=== PATIENT | female | born 1990 | race Caucasian/White ===

== ENCOUNTER → 2018-11-14 | Outpatient (REF) | LOC: M LAB LCGH 11:08 | PROVIDERS: ATTEND Nurse Practitioner Adult Health | DX: Z12.4 Encounter for screening for malignant neoplasm of cervix (principal) ==

== ENCOUNTER → 2021-12-02 | Outpatient (CLI) | payer OTHER | LOC: M WHC 13:02 | PROVIDERS: ATTEND Obstetrics & Gynecology | DX: O13.3 Gestational [pregnancy-induced] hypertension without significant proteinuria, third trimester (principal); Z3A.34 34 weeks gestation of pregnancy ==

== ENCOUNTER → 2021-12-09 | Outpatient (CLI) | payer OTHER ==
[~2021-12-09] MED LIST: LABE20TAB GT; OMEP10CASR PO; REGL10TA6 PO; [UNRECOGNIZED DRUG - CODE] PO
== END ==
LOC: M WHC 09:53
PROVIDERS: ATTEND Obstetrics & Gynecology
DX: O13.9 Gestational [pregnancy-induced] hypertension without significant proteinuria, unspecified trimester (principal); Z3A.35 35 weeks gestation of pregnancy

== ENCOUNTER → 2021-12-12 | Outpatient (CLI) | payer OTHER, MEDICAID | LOC: M LABSMTC 10:48 | PROVIDERS: ATTEND Anesthesiology | DX: Z01.818 Encounter for other preprocedural examination (principal); Z11.52 Encounter for screening for COVID-19 ==

== ENCOUNTER → 2021-12-14 | Outpatient (REF) | payer OTHER, MEDICAID ==
[~2021-12-14] MED LIST changes: +ACET325C5 PO; +B-2100TA; +GLYB5TAB6 PO; +LABE100T4 PO; +MAGN400T35
== END ==
LOC: M SFHCWAGY 17:03
PROVIDERS: ATTEND Obstetrics & Gynecology
DX: Z36.85 Encounter for antenatal screening for Streptococcus B (principal); O34.211 Maternal care for low transverse scar from previous cesarean delivery

== ENCOUNTER 2021-12-15 12:52 | Inpatient (IN) | payer OTHER ==
[~2021-12-15] VITALS: Ht 152.4 cm; Wt 110.1 kg
[2021-12-15] VITALS (10 sets, daily range): BP systolic 83–175; BP diastolic 53–101
[~2021-12-15 12:52] MED LIST changes: -ACET325C5 PO; -B-2100TA; -GLYB5TAB6 PO; -LABE100T4 PO; -MAGN400T35
[2021-12-15] MEDS ORDERED: LR 1,000 ML IV SCH (13:40)
[2021-12-15] MEDS ORDERED: B-2100TA (13:45)
[2021-12-15] MEDS ORDERED: HOME MED LIST COMPLETE! XX SCH (13:45)
[2021-12-15] MEDS ORDERED: DEXTROSE 50% 50 ML SYRINGE IV PRN (13:45)
[2021-12-15] MEDS ORDERED: ACET325C5 PO (13:45)
[2021-12-15] MEDS ORDERED: LABE100T4 PO (13:45)
[2021-12-15] MEDS ORDERED: GLUCOSE 4GM CHEW TABLET PO PRN (13:45)
[2021-12-15] MEDS ORDERED: GLUCAGON INJ 1MG VIAL SC PRN (13:45)
[2021-12-15] MEDS ORDERED: MAGN400T35 (13:45)
[2021-12-15] MEDS ORDERED: GLYB5TAB6 PO (13:45)
[2021-12-15 14:12] LABS: BASO % 0.1 % (0.0-1.0); EOS # 0.1 10^3/uL (0.0-0.5); EOS % 0.8 % (0.0-3.0); HEMATOCRIT 31.9 % (36.0-47.0); HEMOGLOBIN 10.4 g/dl (12.0-15.5); LYMPH # 1.3 10^3/uL (1.5-5.0); MEAN CORPUSCULAR HEMOGLOBIN 27.4 pg (27.0-33.0); MEAN CORPUSCULAR HGB CONC 32.6 g/dl (32.0-36.5); MEAN CORPUSCULAR VOLUME 83.9 fl (80.0-96.0); MONO # 0.4 10^3/uL (0.0-0.8); MONO % 4.9 % (2.0-8.0); NEUTROPHILS # 6.5 10^3/uL (1.5-8.5); NEUTROPHILS % 77.1 % (36.0-66.0); PLATELET COUNT, AUTOMATED 204 10^3/uL (150-450); WHITE BLOOD COUNT 8.4 10^3/uL (4.0-10.0)
[2021-12-15] MEDS: LABETALOL 200 MG TAB PO SCH ×2 (14:38→21:00)
[2021-12-15] MEDS: BETAMETHASONE SOLUSPAN 6MG/ML 5ML VIAL (J0702 PER 3MG) IM SCH (14:39)
[2021-12-15 14:44] LABS: ALBUMIN 2.4 GM/DL (3.2-5.2); ALT/SGPT 10 U/L (12-78); BILIRUBIN,TOTAL 0.3 MG/DL (0.2-1.0); BLOOD UREA NITROGEN 6 MG/DL (7-18); CALCIUM LEVEL 8.5 MG/DL (8.5-10.1); CARBON DIOXIDE LEVEL 23 MEQ/L (21-32); CHLORIDE LEVEL 108 MEQ/L (98-107); CREATININE FOR GFR 0.56 MG/DL (0.55-1.30); GLOMERULAR FILTRATION RATE > 60.0 (>60); GLUCOSE, FASTING 79 MG/DL (70-100); POTASSIUM SERUM 3.9 MEQ/L (3.5-5.1); SODIUM LEVEL 138 MEQ/L (136-145); TOTAL PROTEIN 5.6 GM/DL (6.4-8.2)
[2021-12-15] MEDS: INSULIN LISPRO (NovoLOG) PER UNIT SC SCH ×2 (14:47→18:00)
[2021-12-15] MEDS ORDERED: CALCIUM CARBONATE 500 MG CHEW U/D PO PRN (17:30)
[2021-12-15] MEDS: ACETAMINOPHEN 500 MG TAB PO PRN (18:42)
[2021-12-15] MEDS: OMEPRAZOLE 20MG CAP PO SCH (21:14)
[2021-12-16] MEDS: INSULIN LISPRO (NovoLOG) PER UNIT SC SCH ×4 (00:45→18:13)
[2021-12-16 06:30] VITALS: BP 117/74
[2021-12-16 07:10] VITALS: BP 133/74
[2021-12-16] MEDS: ACETAMINOPHEN 500 MG TAB PO PRN (07:19)
[2021-12-16 09:16] VITALS: BP 157/84
[2021-12-16] MEDS: OMEPRAZOLE 20MG CAP PO SCH ×2 (09:19→21:26)
[2021-12-16] MEDS: LABETALOL 200 MG TAB PO SCH ×2 (09:19→21:27)
[2021-12-16 12:04] VITALS: BP 129/66
[2021-12-16] MEDS ORDERED: SLF 3 ML SYR IV SCH (14:00)
[2021-12-16] MEDS: BETAMETHASONE SOLUSPAN 6MG/ML 5ML VIAL (J0702 PER 3MG) IM SCH (14:10)
[2021-12-16 16:22] VITALS: BP 136/74
[2021-12-16 21:07] VITALS: BP 112/70
[2021-12-17] VITALS (10 sets, daily range): BP systolic 112–153; BP diastolic 56–90
[2021-12-17] MEDS: INSULIN LISPRO (NovoLOG) PER UNIT SC SCH ×2 (00:27→06:21)
[2021-12-17] MEDS ORDERED: ceFAZolin SOD 1 GM in D5W MINI-BAG PLUS 50 ML IV ONE (06:00)
[2021-12-17] MEDS ORDERED: LR 1,000 ML IV ONE (06:00)
[2021-12-17] MEDS ORDERED: BICITRA 30ML SOLN UDC PO ONE (06:00)
[2021-12-17] MEDS ORDERED: ceFAZolin SOD 2 GM in IV 1 EA IV ONE (06:00)
[2021-12-17] MEDS ORDERED: LR 1,000 ML IV SCH ×2 (06:45→09:30)
[2021-12-17 07:12] LABS: HEMOGLOBIN 9.3 g/dl (12.0-15.5); MEAN CORPUSCULAR HEMOGLOBIN 27.4 pg (27.0-33.0); MEAN CORPUSCULAR HGB CONC 32.1 g/dl (32.0-36.5); MEAN CORPUSCULAR VOLUME 85.5 fl (80.0-96.0); PLATELET COUNT, AUTOMATED 214 10^3/uL (150-450); RED BLOOD COUNT 3.39 10^6/uL (4.00-5.40); WHITE BLOOD COUNT 11.2 10^3/uL (4.0-10.0)
[2021-12-17] MEDS ORDERED: MORPHINE PRES-FREE INJ 10 MG/10 ML VIAL As Ordered ONE (07:15)
[2021-12-17] MEDS: LABETALOL 200 MG TAB PO SCH ×3 (09:00→21:17)
[2021-12-17] MEDS ORDERED: KETOROLAC 60MG 2ML VIAL As Ordered ONE (09:23)
[2021-12-17] MEDS ORDERED: OXYTOCIN 30 UNITS IN 0.9% NaCl 500ML IV BAG (J2590) As Ordered ONE (09:23)
[2021-12-17] MEDS ORDERED: MOM 30ML SUSPENSION UDC PO PRN (09:30)
[2021-12-17] MEDS ORDERED: RHOGAM 300 MCG (1500 IU) INJ (J2790) IM SCH (09:30)
[2021-12-17] MEDS ORDERED: ONDANSETRON 4MG/2ML VIAL IV PRN ×2 (09:30→10:40)
[2021-12-17] MEDS ORDERED: MEASLES,MUMPS,RUBELLA VACCINE INJ (MMR-II) (90707) SC SCH (09:30)
[2021-12-17] MEDS ORDERED: PERCOCET PO (09:44)
[2021-12-17] MEDS ORDERED: COLA100C5 PO (09:44)
[2021-12-17] MEDS ORDERED: IBUP80TA PO (09:44)
[2021-12-17] MEDS ORDERED: OXYTOCIN DRIP 30 UNITS in IV 1 EA IV ONE (10:20)
[2021-12-17] MEDS ORDERED: oxyCODONE 5MG TAB PO PRN (10:40)
[2021-12-17] MEDS ORDERED: fentaNYL 100 MCG/2 ML INJECTION IV PRN (10:40)
[2021-12-17] MEDS: PERCOCET 5MG/325MG TAB PO PRN (12:34)
[2021-12-17] MEDS: KETOROLAC 30 MG/ML 1ML VIAL IV SCH ×2 (15:06→21:20)
[2021-12-17] MEDS: DOCUSATE SODIUM 100MG CAPSULE PO SCH (21:15)
[2021-12-17] MEDS: SIMETHICONE 80MG CHEW TAB PO PRN (21:22)
[2021-12-18] MEDS: PERCOCET 5MG/325MG TAB PO PRN ×2 (01:57→15:55)
[2021-12-18 02:00] VITALS: BP 144/74
[2021-12-18] MEDS: KETOROLAC 30 MG/ML 1ML VIAL IV SCH (03:56)
[2021-12-18 05:35] VITALS: BP 136/77
[2021-12-18 06:32] LABS: HEMOGLOBIN 8.4 g/dl (12.0-15.5); MEAN CORPUSCULAR HEMOGLOBIN 27.4 pg (27.0-33.0); MEAN CORPUSCULAR HGB CONC 31.1 g/dl (32.0-36.5); MEAN CORPUSCULAR VOLUME 87.9 fl (80.0-96.0); PLATELET COUNT, AUTOMATED 203 10^3/uL (150-450); RED BLOOD COUNT 3.07 10^6/uL (4.00-5.40)
[2021-12-18] MEDS ORDERED: PILL CUTTER 1 EACH XX PRN (07:50)
[2021-12-18] MEDS ORDERED: ENOXAPARIN 60MG/0.6ML SYRINGE (J1650 PER 10MG) SC SCH (09:00)
[2021-12-18] MEDS ORDERED: LABETALOL 200 MG TAB PO ONE (09:00)
[2021-12-18] MEDS: PRENATAL VITAMINS CHEWABLE TABLET PO SCH ×2 (09:00→09:47)
[2021-12-18] MEDS: DOCUSATE SODIUM 100MG CAPSULE PO SCH ×2 (09:45→20:17)
[2021-12-18] MEDS: IBUPROFEN 800 MG TAB PO SCH ×2 (09:46→20:20)
[2021-12-18] MEDS: ENOXAPARIN 40MG/0.4ML SYRINGE (J1650 PER 10MG) SC SCH (09:48)
[2021-12-18 09:56] VITALS: BP 139/82
[2021-12-18] MEDS: SIMETHICONE 80MG CHEW TAB PO PRN (15:54)
[2021-12-18 18:00] VITALS: BP 127/69
[2021-12-18] MEDS: LABETALOL 200 MG TAB PO SCH (20:19)
[2021-12-18 22:00] VITALS: BP 151/73
[2021-12-19] MEDS: PERCOCET 5MG/325MG TAB PO PRN ×2 (01:31→20:01)
[2021-12-19] MEDS: IBUPROFEN 800 MG TAB PO SCH ×3 (03:01→20:00)
[2021-12-19 06:00] VITALS: BP 146/84
[2021-12-19] MEDS: DOCUSATE SODIUM 100MG CAPSULE PO SCH ×2 (10:11→20:00)
[2021-12-19] MEDS: PRENATAL VITAMINS CHEWABLE TABLET PO SCH (10:11)
[2021-12-19] MEDS: ENOXAPARIN 40MG/0.4ML SYRINGE (J1650 PER 10MG) SC SCH (10:11)
[2021-12-19] MEDS: LABETALOL 200 MG TAB PO SCH ×2 (10:14→20:00)
[2021-12-19 14:00] VITALS: BP 131/75
[2021-12-19 18:00] VITALS: BP 136/87
[2021-12-19 20:00] VITALS: BP 128/60
[2021-12-19 22:00] VITALS: BP 154/84
[2021-12-20 02:00] VITALS: BP 143/78
[2021-12-20] MEDS: IBUPROFEN 800 MG TAB PO SCH ×2 (03:29→11:35)
[2021-12-20 06:00] VITALS: BP_SYST 0; BP_SYST 168; BP_DIAS 93
[2021-12-20] MEDS: PERCOCET 5MG/325MG TAB PO PRN ×2 (06:07→12:43)
[2021-12-20 06:15] VITALS: BP 166/86
[2021-12-20] MEDS: LABETALOL 200 MG TAB PO SCH (06:29)
[2021-12-20 08:30] VITALS: BP 140/83
[2021-12-20] MEDS: PRENATAL VITAMINS CHEWABLE TABLET PO SCH (08:55)
[2021-12-20] MEDS: DOCUSATE SODIUM 100MG CAPSULE PO SCH (08:55)
[2021-12-20] MEDS: ENOXAPARIN 40MG/0.4ML SYRINGE (J1650 PER 10MG) SC SCH (08:56)
[2021-12-20] MEDS: SIMETHICONE 80MG CHEW TAB PO PRN ×2 (09:02→12:44)
[2021-12-20 10:00] VITALS: BP 145/70
[2021-12-20] MEDS ORDERED: LABE200T3 PO (11:46)
== END 2021-12-20 13:38 | disposition home or self-care (01) | DRG 540 ==
LOC: M LDI 12:52 → M OBS 12-17 11:09
PROVIDERS: ADMIT Obstetrics & Gynecology; ATTEND Obstetrics & Gynecology
PROC: 0JBB0ZZ Excision of Perineum Subcutaneous Tissue and Fascia, Open Approach (ICD-10-PCS; 2021-12-17)
PROC: 10D00Z1 Extraction of Products of Conception, Low, Open Approach (ICD-10-PCS; principal; 2021-12-17 07:30)
DX: O41.03X0 Oligohydramnios, third trimester, not applicable or unspecified (principal); O10.92 Unspecified pre-existing hypertension complicating childbirth; O24.425 Gestational diabetes mellitus in childbirth, controlled by oral hypoglycemic drugs; E66.9 Obesity, unspecified; O99.214 Obesity complicating childbirth; Z37.0 Single live birth; Z3A.37 37 weeks gestation of pregnancy; O34.211 Maternal care for low transverse scar from previous cesarean delivery; Z79.899 Other long term (current) drug therapy; M79.9 Soft tissue disorder, unspecified; O26.893 Other specified pregnancy related conditions, third trimester

== ENCOUNTER → 2021-12-15 | Outpatient (CLI) | payer OTHER | LOC: M WHC 10:00 | PROVIDERS: ATTEND Obstetrics & Gynecology | DX: O10.913 Unspecified pre-existing hypertension complicating pregnancy, third trimester (principal) ==

== ENCOUNTER → 2022-08-16 | Outpatient (REF) | payer OTHER, MEDICAID ==
[~2022-08-16] MED LIST changes: +ACET325C5 PO; +B-2100TA; +COLA100C5 PO; +GLYB5TAB6 PO; +IBUP80TA PO; +LABE100T6 PO; +LABE200T5 PO; +MAGN400T35; +PERCOCET PO
== END ==
LOC: M SFHCWAGY 13:16
PROVIDERS: ATTEND Obstetrics & Gynecology
DX: Z12.4 Encounter for screening for malignant neoplasm of cervix (principal)

== ENCOUNTER → 2023-03-18 | Outpatient (REF) | payer OTHER, MEDICAID ==
[2023-03-18 16:36] LABS: APPEARANCE, URINE CLEAR (CLEAR); BACTERIA, URINE AUTO NEGATIVE (NEGATIVE); BILIRUBIN, URINE AUTO NEGATIVE (NEGATIVE); BLOOD, URINE BLOOD NEGATIVE (NEGATIVE); COLOR, URINE YELLOW (YELLOW); GLUCOSE, URINE (UA) AUTO NEGATIVE (NEGATIVE); KETONE, URINE AUTO NEGATIVE (NEGATIVE); LEUKOCYTE ESTERASE, URINE AUTO NEGATIVE (NEGATIVE); NITRITE, URINE AUTO NEGATIVE (NEGATIVE); PROTEIN, URINE AUTO NEGATIVE (NEGATIVE); RBC, URINE AUTO 0 /HPF (0-3); SPECIFIC GRAVITY URINE AUTO 1.011 (1.002-1.035); SQUAMOUS EPITHELIAL CELL UR AU 3 /HPF (0-6); UROBILINOGEN, URINE AUTO 0.2 mg/dL (0.0-2.0); WBC, URINE AUTO 0 /HPF (0-3)
[2023-03-18 16:41] LABS: BASO % 0.5 % (0.0-1.0); EOS # 0.2 10^3/uL (0.0-0.5); HEMATOCRIT 40.3 % (36.0-47.0); HEMOGLOBIN 12.7 g/dl (12.0-15.5); LYMPH # 2.3 10^3/uL (1.5-5.0); LYMPH % 27.4 % (24.0-44.0); MEAN CORPUSCULAR HEMOGLOBIN 26.4 pg (27.0-33.0); MEAN CORPUSCULAR HGB CONC 31.5 g/dl (32.0-36.5); MEAN CORPUSCULAR VOLUME 83.8 fl (80.0-96.0); MONO # 0.4 10^3/uL (0.0-0.8); MONO % 4.7 % (2.0-8.0); NEUTROPHILS # 5.5 10^3/uL (1.5-8.5); PLATELET COUNT, AUTOMATED 313 10^3/uL (150-450); RED BLOOD COUNT 4.81 10^6/uL (4.00-5.40); WHITE BLOOD COUNT 8.4 10^3/uL (4.0-10.0)
[2023-03-18 16:42] LABS: ALKALINE PHOSPHATASE 85 U/L (46-116); ALT/SGPT 37 U/L (7.0-40); AST/SGOT 15 U/L (<34); BILIRUBIN,TOTAL 0.4 MG/DL (0.3-1.2); BLOOD UREA NITROGEN 7 MG/DL (9-23); CALCIUM LEVEL 9.5 MG/DL (8.5-10.1); CARBON DIOXIDE LEVEL 28 MMOL/L (20-31); CHLORIDE LEVEL 104 MMOL/L (98-107); COMPLEMENT C3 152.6 MG/DL (84.0-160.0); CREATININE FOR GFR 0.71 MG/DL (0.55-1.30); GLOMERULAR FILTRATION RATE > 60.0 (>60); GLUCOSE, FASTING 80 MG/DL (60-100); POTASSIUM SERUM 3.9 MMOL/L (3.5-5.1); SODIUM LEVEL 139 MMOL/L (136-145); TOTAL PROTEIN 6.9 G/DL (5.7-8.2)
[2023-03-18 16:43] LABS: COMPLEMENT C4 40.8 MG/DL (12-36); IMMUNOGLOBULIN A 168.8 MG/DL (40-350); IMMUNOGLOBULIN G 925 MG/DL (650-1600); IMMUNOGLOBULIN M 59.9 MG/DL (50-300)
[2023-03-18 16:58] LABS: CREATININE,RANDOM URINE 68.7 MG/DL
[2023-03-18 17:01] LABS: TOTAL PROTEIN,RANDOM URINE < 6.0 MG/DL (0.0-14.0)
[2023-03-18 17:24] LABS: ERYTHROCYTE SEDIMENTATION RATE 14 mm/hr (0-20)
== END ==
LOC: M SFHCRHEU 14:30
PROVIDERS: ATTEND Internal Medicine Rheumatology
DX: R76.8 Other specified abnormal immunological findings in serum (principal); R79.82 Elevated C-reactive protein (CRP); M35.3 Polymyalgia rheumatica